=== PATIENT | male | born 1955 | race Two or more races ===

== ENCOUNTER 2022-04-27 14:17 | Outpatient (CLI) | payer OTHER | END 2022-04-27 14:19 | disposition home or self-care (01) | LOC: LAB 14:17 | PROVIDERS: ATTEND Urology | DX: R97.20 Elevated prostate specific antigen [PSA] (principal) ==

== ENCOUNTER 2022-06-16 07:47 | Outpatient (CLI) | payer OTHER | END 2022-06-16 07:52 | disposition home or self-care (01) | LOC: SONOGRAMA 07:47 | PROVIDERS: ATTEND Urology | DX: N41.1 Chronic prostatitis (principal); D29.1 Benign neoplasm of prostate; R97.20 Elevated prostate specific antigen [PSA] ==

== ENCOUNTER 2023-07-09 11:26 | Outpatient (CLI) | payer OTHER | END 2023-07-09 11:31 | disposition home or self-care (01) | LOC: RAD 11:26 | DX: M54.50 Low back pain, unspecified (principal); M25.559 Pain in unspecified hip ==

== ENCOUNTER 2023-12-05 11:08 | Outpatient (CLI) | payer OTHER | END 2023-12-05 11:09 | disposition home or self-care (01) | LOC: NUCLEAR 11:08 | DX: I87.2 Venous insufficiency (chronic) (peripheral) (principal); I87.323 Chronic venous hypertension (idiopathic) with inflammation of bilateral lower extremity ==

== ENCOUNTER 2024-01-11 07:40 | Outpatient (CLI) | payer OTHER | END 2024-01-11 07:47 | disposition home or self-care (01) | LOC: RAD 07:40 | PROVIDERS: ATTEND General Practice | DX: J20.9 Acute bronchitis, unspecified (principal) ==

== ENCOUNTER 2024-10-17 17:44 | Emergency (ER) | payer OTHER ==
[~2024-10-17] VITALS: Ht 175.3 cm; Wt 77.1 kg
[2024-10-17] MEDS ORDERED: COZAAR50 MG (18:18)
[2024-10-17] MEDS ORDERED: PREZCOBIX 8001 EACH (18:19)
[2024-10-17] MEDS ORDERED: ISENTRESS HD600 MG (18:19)
[2024-10-17] MEDS ORDERED: KETOROLAC TROMETHAMINE 60 MG VIAL IM ONE (20:15)
[2024-10-17] MEDS ORDERED: ORPHENADRINE CITRATE 100 MG TABLET PO ONE (20:15)
[2024-10-17] MEDS ORDERED: NORFLEX100MG PO (21:33)
[2024-10-17] MEDS ORDERED: DICLOFENAC SODI75 MG PO (21:34)
== END 2024-10-17 22:09 | disposition home or self-care (01) ==
LOC: ER 17:44
DX: S09.8XXA Other specified injuries of head, initial encounter (principal); W19.XXXA Unspecified fall, initial encounter; Y93.89 Activity, other specified; Y92.69 Other specified industrial and construction area as the place of occurrence of the external cause; Y99.8 Other external cause status; M62.838 Other muscle spasm; B20 Human immunodeficiency virus [HIV] disease
CPT/HCPCS: 70260; 72040; 96372; 99283; J1885

== ENCOUNTER → 2024-10-17 | Emergency (ER) | payer OTHER ==
[~2024-10-17] VITALS: Ht 175.3 cm; Wt 77.1 kg
[~2024-10-17] MED LIST: COZAAR50 MG; DICLOFENAC SODI75 MG PO; ISENTRESS HD600 MG; KETOROLAC TROMETHAMINE 60 MG VIAL IM ONE; NORFLEX100MG PO; PREZCOBIX 8001 EACH
== END | disposition home or self-care (01) ==
LOC: ER 18:41
DX: S09.8XXA Other specified injuries of head, initial encounter (principal); W19.XXXA Unspecified fall, initial encounter; Y93.89 Activity, other specified; Y92.69 Other specified industrial and construction area as the place of occurrence of the external cause; Y99.8 Other external cause status; M62.838 Other muscle spasm; I10 Essential (primary) hypertension; B20 Human immunodeficiency virus [HIV] disease
CPT/HCPCS: 70260; 72040; 96372; 99283; J1885

== ENCOUNTER 2025-04-23 19:44 | Inpatient (IN) | payer OTHER ==
[~2025-04-23] VITALS: Ht 167.6 cm; Wt 72.6 kg
[~2025-04-23 19:44] MED LIST changes: -KETOROLAC TROMETHAMINE 60 MG VIAL IM ONE
[2025-04-23] MEDS ORDERED: ADULT LOW DOSE81 M1 (19:52)
[2025-04-23] MEDS ORDERED: NORVASC5 MG (19:52)
[2025-04-23] MEDS ORDERED: FENOFIBRATE40 MG (19:52)
[2025-04-23] MEDS ORDERED: JULUCA 50-25 M1 EACH (19:53)
[2025-04-23] MEDS ORDERED: OMEGA 3 1,0001 EACH (19:53)
--- NOTE | 2025-04-23 19:54 | NUR ---
SE RECIBE PACIENTE ALERTA Y ORIENTADO X 3 ESFERAS EL CUAL INDICA QUE SUFRIO UN EPISODIO EN EL CUAL NO PODIA HUMAN RESOURCES COORDINATOR [place]. PARAMEDICOS INDICAN QUE AL LLEGAR EVALUAR A PACIENTE PRESENTO LUPIS PRESION POR LO CUAL LE ADMINISTRARON VASOTEC 1.25MG IV. SE UBICA A PACIENTE EN CAMA CON BARANDAS ELEVADAS, SE CONECTA A MONITOR CARDIACO Y OXIMETRIA DE PULSO.
[2025-04-23] MEDS ORDERED: DEXAMETHASONE SODIUM PHOSPHATE 4 MG/ML VIAL IM STA (20:03)
[2025-04-23] MEDS ORDERED: ENALAPRILAT DIHYDRATE 1.25 MG/ML VIAL IV STA (20:03)
[2025-04-23] MEDS ORDERED: ACETAMINOPHEN 500 MG GEL..CAP PO STA (20:03)
[2025-04-23 20:24] LABS: BASO % 0.5 % (0.1-1.2); EOS # 0.16 (0.04-0.54); EOS % 4.3 % (0.7-7.0); LYMPH # 0.88 (1.18-3.74); LYMPH % 23.9 % (19.3-53.1); MEAN PLATELET VOLUME 9.70 fl (9.4-12.4); MONO # 0.39 (0.24-0.82); MONO % 10.6 % (4.7-12.5); NEUT # 2.22 (1.56-6.13); NEUT % 60.4 % (34.0-71.1); RED CELL DISTRIBUTION WIDTH 13.1 % (11.6-14.4)
[2025-04-23 21:04] LABS: GFR 13.36; GLUCOSE FASTING 159.0 mg/dL (65-100); TSH 0.935 uIU/mL (0.358-3.74)
[2025-04-23 21:23] LABS: URINE APPEARANCE Clear; URINE BILIRRUBIN Negative (NEGATIVE); URINE BLOOD Small; URINE COLOR Yellow; URINE KETONE Negative (NEGATIVE); URINE LEUKOCYTE Negative; URINE NITRATE Negative; URINE UROBILINOGEN 0.2 E.U./dl
[2025-04-23 21:24] LABS: BUN CREA RATIO 20.0 (7.0-25.0); OSMOLALITY SERUM 308.0 MOSM/KG (275-295)
[2025-04-23 21:28] LABS: URINE BACTERIA 4.5 uL (0.0-1933); URINE RBC 2.4 uL (0.0-20.8)
[2025-04-23 21:29] LABS: URINE CAST 0.00 uL (0.0-1.40); URINE EPITHELIAL CELLS 0.1 uL (0.0-38.8); URINE GLUCOSE 100 MG/DL (NEGATIVE); URINE PROTEIN 100 (NEGATIVE); URINE WBC 0.3 uL (0.0-23.2)
[2025-04-23 21:29] LABS: CREATININE SERUM 4.39 mg/dL (0.70-1.30)
--- NOTE | 2025-04-23 22:24 | NUR ---
SE ORIENTA A PACIENTE SOBRE TRATAMIENTO MEDICO, REFIERE ENTENDER. SE REALIZAN MUESTRAS DE LABORATORIO BAJO MEDIDAS ASEPTICAS. SE ADMINISTRAN MEDICAMENTOS FAISAL ORDEN MEDICA. SE COORDINA DEYSI X Y CT.
[2025-04-23] MEDS ORDERED: NIFEDIPINE 10 MG CAPSULE PO STA (22:56)
[2025-04-23] MEDS ORDERED: 0.9 % SODIUM CHLORIDE 1,000 ML IV STA (23:15)
--- NOTE | 2025-04-24 07:00 | NUR ---
SE RECIBE PACIENTE DE TURNO ANTERIOR ALERTA Y ORIENTADO EN BESSIE DEE ESFERAS, CONECTADO A MONITOR CARDIACO. PACIENTE UBICADO EN ANJALI, A NIVEL MAS BAJO. SE OBSERVA CON BUEN PATRON RESPIRATORIO Y PIEL TIBIA AL TACTO. CANALIZACION EN LA PATENTE,RAMA DE EDEMA O ERITEMA, RECIBIENDO IV FLUIDS. PACIENTE EN ESPERA DE MEDICINA INTERNA.
[2025-04-24 07:38] LABS: BUN CREA RATIO 22.0 (7.0-25.0); CREATININE SERUM 3.75 mg/dL (0.70-1.30); GFR 16.02; GLUCOSE FASTING 150.0 mg/dL (65-100); OSMOLALITY SERUM 309.0 MOSM/KG (275-295)
[2025-04-24] MEDS ORDERED: LOSARTAN POTASSIUM 50 MG TABLET PO STA (07:38)
[2025-04-24] MEDS ORDERED: AMLODIPINE BESYLATE 5 MG TABLET PO STA (07:39)
[2025-04-24] MEDS ORDERED: ASPIRIN 81 MG TAB.CHEW PO STA (07:40)
[2025-04-24] MEDS ORDERED: DARUNAVIR/COBICISTAT 1 EACH TABLET PO STA (07:41)
[2025-04-24] MEDS ORDERED: MECLIZINE HCL 12.5 MG TABLET PO ONE (09:10)
[2025-04-24] MEDS ORDERED: MECLIZINE HCL 12.5 MG TABLET PO STA (09:10)
[2025-04-24] MEDS ORDERED: 0.9 % SODIUM CHLORIDE 1,000 ML IV SCH (09:45)
[2025-04-24] MEDS ORDERED: hydrALAZINE HCL 20 MG VIAL IV PRN (13:00)
[2025-04-24] MEDS ORDERED: SODIUM CHLORIDE 0.45 % 1,000 ML IV SCH (13:00)
[2025-04-24] MEDS ORDERED: NIFEDIPINE 30 MG TAB.SA.OSM PO NR (14:15)
[2025-04-24 16:31] VITALS: BP 130/90
[2025-04-24] MEDS ORDERED: FF) DOLUTEGRAVIR/RILPIVIRINE TABLET PO SCH (17:00)
[2025-04-24 22:36] VITALS: O2SAT 98
[2025-04-25] VITALS (8 sets, daily range): BP systolic 150–172; BP diastolic 59–85; O2SAT 97–99
[2025-04-25 07:28] LABS: URINE APPEARANCE Clear; URINE BILIRRUBIN Negative (NEGATIVE); URINE BLOOD Moderate; URINE COLOR Yellow; URINE GLUCOSE Negative (NEGATIVE); URINE KETONE Negative (NEGATIVE); URINE LEUKOCYTE Negative; URINE NITRATE Negative; URINE UROBILINOGEN 0.2 E.U./dl
[2025-04-25 07:32] LABS: URINE BACTERIA 25.1 uL (0.0-1933); URINE WBC 1.8 uL (0.0-23.2)
[2025-04-25 07:34] LABS: URINE CAST 0.14 uL (0.0-1.40); URINE EPITHELIAL CELLS 0.9 uL (0.0-38.8); URINE PROTEIN 100 (NEGATIVE); URINE RBC 0.9 uL (0.0-20.8)
[2025-04-25 07:56] LABS: BASO % 0.5 % (0.1-1.2); EOS # 0.12 (0.04-0.54); EOS % 2.9 % (0.7-7.0); LYMPH # 1.08 (1.18-3.74); LYMPH % 25.7 % (19.3-53.1); MEAN PLATELET VOLUME 10.70 fl (9.4-12.4); MONO # 0.36 (0.24-0.82); MONO % 8.6 % (4.7-12.5); NEUT # 2.60 (1.56-6.13); NEUT % 61.8 % (34.0-71.1); RED CELL DISTRIBUTION WIDTH 13.2 % (11.6-14.4)
[2025-04-25 08:05] LABS: INR 1.14
[2025-04-25 08:24] LABS: ALT/SGPT 38 U/L (12-78); AST/SGOT 53 U/L (15-37); BILIRUBIN TOTAL 0.48 mg/dL (0.3-1.2); BILIRUBIN,CONJUGATED 0.15 mg/dL (0.0-0.2); BUN CREA RATIO 20 (7.0-25.0); CHOL HDL RATIO 5.0 (0-5.0); CREATININE SERUM 3.62 mg/dL (0.70-1.30); GFR 16.69; GLUCOSE FASTING 98 mg/dL (65-100); HDL 29 mg/dl (40-60); LDL 83 mg/dl (0-130); OSMOLALITY SERUM 305 MOSM/KG (275-295); T4 FREE 1.21 NG/ML (0.76-1.46); TSH 1.090 uIU/mL (0.358-3.74); VLDL 33 (0-39)
[2025-04-25 08:37] LABS: ERYTHROCYTE SEDIMENTATION RATE 15 mm/hr (0-20)
[2025-04-25] MEDS ORDERED: NIFEDIPINE 30 MG TAB.SA.OSM PO SCH (09:00)
[2025-04-25] MEDS ORDERED: LOPERAMIDE HCL 2 MG CAPSULE PO NR (11:20)
[2025-04-25] MEDS ORDERED: FF) DOLUTEGRAVIR/RILPIVIRINE TABLET PO SCH (17:00)
[2025-04-25] MEDS ORDERED: NIFEDIPINE 30 MG TAB.SA.OSM PO STA (19:44)
[2025-04-26] VITALS (9 sets, daily range): BP systolic 155–176; BP diastolic 84–90; O2SAT 96–100
[2025-04-26] MEDS ORDERED: NIFEDIPINE 30 MG TAB.SA.OSM PO SCH (09:00)
[2025-04-26] MEDS ORDERED: FF) DOLUTEGRAVIR/RILPIVIRINE TABLET PO SCH (11:40)
[2025-04-26] MEDS ORDERED: DOXAZOSIN MESYLATE 2 MG TABLET PO SCH (17:00)
[2025-04-27] VITALS (9 sets, daily range): BP systolic 119–179; BP diastolic 67–97; O2SAT 9–98
[2025-04-27 06:45] LABS: ALT/SGPT 43.0 U/L (12-78); AST/SGOT 76.0 U/L (15-37); BILIRUBIN TOTAL 0.47 mg/dL (0.3-1.2); BUN CREA RATIO 16.0 (7.0-25.0); GFR 14.66; GLOBULINA 3.0 G/DL (2.4-3.5); GLUCOSE FASTING 130.0 mg/dL (65-100); OSMOLALITY SERUM 304.0 MOSM/KG (275-295)
[2025-04-27 08:20] LABS: CREATININE SERUM 4.05 mg/dL (0.70-1.30)
[2025-04-28] VITALS: O2SAT 96
[2025-04-28 00:59] VITALS: BP 160/77; O2SAT 98
[2025-04-28 04:00] VITALS: O2SAT 98
[2025-04-28] MEDS ORDERED: NIFEDIPINE ER30 M1 PO (09:14)
[2025-04-28] MEDS ORDERED: DOXAZOSIN MESYLA2 MG PO (09:14)
[2025-04-28] MEDS ORDERED: BUCAPSOL10 MG PO (09:14)
[2025-04-28 09:28] VITALS: BP 167/94; O2SAT 98
[2025-04-28 10:38] VITALS: O2SAT 97
[2025-04-28 11:01] LABS: ALT/SGPT 47.0 U/L (12-78); AST/SGOT 61.0 U/L (15-37); BILIRUBIN TOTAL 0.49 mg/dL (0.3-1.2); BUN CREA RATIO 17.0 (7.0-25.0); CREATININE SERUM 3.9 mg/dL (0.70-1.30); GFR 15.32; GLOBULINA 3.5 G/DL (2.4-3.5); GLUCOSE FASTING 119.0 mg/dL (65-100); OSMOLALITY SERUM 306.0 MOSM/KG (275-295)
[2025-04-29 20:11] LABS: LOG 10 1.301 (.)
== END 2025-04-28 12:58 | disposition home or self-care (01) | DRG 71 ==
LOC: ER → SEC-K 04-24 09:57 → MEDJ 04-24 14:56
PROVIDERS: General Practice; Internal Medicine Infectious Disease; Internal Medicine Nephrology; ADMIT Internal Medicine; ATTEND Internal Medicine
PROC: BW28ZZZ Computerized Tomography (CT Scan) of Head (ICD-10-PCS; principal; 2025-04-23)
PROC: BT4JZZZ Ultrasonography of Kidneys and Bladder (ICD-10-PCS; 2025-04-24)
PROC: B030ZZZ Magnetic Resonance Imaging (MRI) of Brain (ICD-10-PCS; 2025-04-24)
PROC: B246ZZZ Ultrasonography of Right and Left Heart (ICD-10-PCS; 2025-04-24)
PROC: B345ZZZ Ultrasonography of Bilateral Common Carotid Arteries (ICD-10-PCS; 2025-04-24)
PROC: 4A12X4Z Monitoring of Cardiac Electrical Activity, External Approach (ICD-10-PCS; 2025-04-24)
DX: I67.4 Hypertensive encephalopathy (principal); N17.8 Other acute kidney failure; I16.0 Hypertensive urgency; R42 Dizziness and giddiness; F41.9 Anxiety disorder, unspecified; Z86.73 Personal history of transient ischemic attack (TIA), and cerebral infarction without residual deficits; I10 Essential (primary) hypertension
CPT/HCPCS: 70551